=== PATIENT | male | born 1975 | race Caucasian/White ===

== ENCOUNTER 2021-04-02 06:25 | Emergency (ER) | payer OTHER ==
[2021-04-02 06:52] LABS: BASOPHIL 0.5 % (0-2); EOSINOPHIL 2.4 % (0-5); HCT 42.5 % (42.0-52.0); LYMPHOCYTE 45.5 % (15-48); MCH 32.1 pg (25.0-31.0); MCHC 35.3 g/dL (32.0-36.0); MCV 90.8 fL (78.0-100.0); MONOCYTE 13.8 % (0-12); MPV 10.3 fL (6.0-9.5); NEUTROPHIL 37.5 % (41-80); NRBC 0; PLT 182 K/uL (150-400); RBC 4.68 M/uL (4.70-6.00); RDW 12.5 % (11.5-14.0)
[2021-04-02 07:11] LABS: ALBUMIN 3.7 g/dL (3.4-5.0); BILIRUBIN - TOTAL 0.3 mg/dL (0.2-1.0); BUN/CREAT RATIO (CALC) 19.1 RATIO; CREATININE 0.94 mg/dL (0.67-1.17); GLOBULIN (CALCULATION) 3.7 g/dL; POTASSIUM 3.9 mmol/L (3.5-5.1); TOTAL PROTEIN 7.4 g/dL (6.4-8.2)
[2021-04-02 07:44] LABS: INR 0.94 (0.9-1.2); PROTHROMBIN TIME 11.9 SECONDS (11.4-13.6); PTT 26.6 SECONDS (22.2-34.7)
[2021-04-02 07:45] LABS: D-DIMER 0.29 ug/mLFEU (0.00-0.41)
== END 2021-04-02 09:05 | disposition home or self-care (01) ==
LOC: FER 06:25
PROVIDERS: Emergency Medicine Emergency Medical Services
DX: R07.89 Other chest pain (principal); Z20.822 Contact with and (suspected) exposure to COVID-19; I10 Essential (primary) hypertension; Z79.899 Other long term (current) drug therapy; Z98.890 Other specified postprocedural states
CPT/HCPCS: 36415; 36600; 71045; 71275; 80053; 82803; 84436; 84443; 84484; 85025; 85379; 85610; 85730; 93005; 94760; Q9967; U0002